=== PATIENT | female | born 1995 | race African-American/Black ===

== ENCOUNTER 2020-05-19 16:27 | Observation (INO) | payer MEDICAID | END 2020-05-19 17:35 | disposition home or self-care (01) | LOC: LDRP 16:27 | PROVIDERS: ADMIT Obstetrics & Gynecology; ATTEND Obstetrics & Gynecology | DX: O99.89 Other specified diseases and conditions complicating pregnancy, childbirth and the puerperium (principal); M54.9 Dorsalgia, unspecified; O26.893 Other specified pregnancy related conditions, third trimester; R10.9 Unspecified abdominal pain; Z3A.35 35 weeks gestation of pregnancy | CPT/HCPCS: 59025; 81002; G0378 ==

== ENCOUNTER 2020-06-09 06:40 | Inpatient (IN) | payer MEDICAID ==
[~2020-06-09] VITALS: Ht 175.3 cm; Wt 104.3 kg
[2020-06-09] MEDS ORDERED: LACT. RINGERS/OXYTOCIN 20UNITS 1,000 ML IV SCH (07:23)
[2020-06-09] MEDS ORDERED: LACTATED RINGER'S 1,000 ML IV SCH (07:23)
[2020-06-09] MEDS ORDERED: METHYLERGONOVINE MALEATE 0.2 MG/ML AMP IM PRN (07:30)
[2020-06-09] MEDS ORDERED: CARBOPROST TROMETHAMINE 250 MCG/1ML VIAL IM PRN (07:30)
[2020-06-09] MEDS ORDERED: DERMOPLAST 60ML BOTTLE TOP PRN (07:30)
[2020-06-09] MEDS ORDERED: PENICILLIN G POT 5MIL/D5 50ML 50 ML IV ONE ×2 (07:30→07:31)
[2020-06-09] MEDS ORDERED: PHISODERM TOP SOLN 240ML BTL TOP PRN (07:30)
[2020-06-09] MEDS ORDERED: LIDOCAINE 2%HCL (LOCAL ANESTH.) INJ 20ML MDV ID ONE (07:30)
[2020-06-09] MEDS ORDERED: WITCH HAZEL-GLYCERIN PAD TOP PRN (07:30)
[2020-06-09] MEDS ORDERED: LACT. RINGERS/OXYTOCIN 20UNITS 1,000 ML IV ONE (07:40)
[2020-06-09] MEDS ORDERED: PREN-96 PO (07:57)
[2020-06-09 09:09] LABS: Urine Bacteria FEW /hpf (None Seen); Urine Blood 2+ /uL (Negative); Urine Hyaline Cast FEW /lpf (0 - 2); Urine Mucus FEW (None Seen); Urine Specific Gravity 1.007 (1.001-1.035); Urine WBC 21 /hpf (0 - 5)
[2020-06-09 09:11] LABS: INR 0.96 (0.9-1.15)
[2020-06-09 09:20] LABS: Albumin 2.7 g/dL (3.4-5.0); Calcium 8.5 mg/dL (8.5-10.1); Potassium 3.6 mmol/L (3.5-5.1)
[2020-06-09 09:25] LABS: BUN/Creatinine Ratio 6.6; Bilirubin, Total 0.4 mg/dL (0.2-1.0); Total Protein 7.8 g/dL (6.4-8.2); Uric Acid 4.4 mg/dL (2.6-6.0)
[2020-06-09 09:27] LABS: Alcohol, Urine < 3.0 mg/dL (0-10); Amphetamine Screen, Urine NEGATIVE (NEGATIVE); Barbiturate Scree,Urine NEGATIVE (NEGATIVE); Benzodiazephine Screen, Urine NEGATIVE (NEGATIVE); Cannabinoid Screen, Urine NEGATIVE (NEGATIVE); Cocaine Screen, Urine NEGATIVE (NEGATIVE); Opiate Scree,Urine NEGATIVE (NEGATIVE); Phencyclidine Screen, Urine NEGATIVE (NEGATIVE)
--- NOTE | 2020-06-09 11:02 | NUR ---
Ambulation: Patient OOB with standby assistance by RN. Patient ambulated to bathroom with steady gait. Patient able to void without difficulty 800ml. [facility] teaching provided with returned demonstration by patient. Clean gown provided and bed linen changed. Patient ambulated back to bed with steady gait and no distress noted.
[2020-06-09] MEDS ORDERED: PENICILLIN G POTASSIUM 2,500,000 UNITS in D5W 5% 50 ML IV SCH (11:30)
[2020-06-09] MEDS: IBUPROFEN 600 MG TAB PO PRN ×2 (11:48→19:30)
[2020-06-09 15:33] LABS: Neutrophils % (auto) 60.5 % (37.0-80.0); White Blood Cell 10.5 10^3/uL (4.4-10.8)
[2020-06-09 15:34] LABS: Basophils # (auto) 0.06 10 ^3/uL (0-0.2); Basophils % (auto) 0.6 % (0.0-2.0); Eosinophils # (auto) 0.3 10 ^3/uL (0-0.8); Eosinophils % (auto) 2.8 % (0.0-7.0); Hemoglobin 10.5 g/dL (12.2-16.2); Lymphocytes # (auto) 2.43 10 ^3/uL (0.4-5.4); Lymphocytes % (auto) 23.1 % (10.0-50.0); Mean Corpuscular Hemoglobin 27.3 pg (28.0-32.0); Mean Corpuscular Hgb Conc. 31.8 g/dL (32.0-36.0); Mean Corpuscular Volume 85.7 fL (80.0-100.0); Monocytes # (auto) 1.33 10 ^3/uL (0-1.3); Monocytes % (auto) 12.6 % (0.0-12.0); Neutrophils # (auto) 6.38 10 ^3/uL (1.6-8.6); Platelet Count (auto) 270 10^3/uL (140-450); Red Blood Cells 3.85 10^6/uL (4.0-5.20)
[2020-06-09 19:00] VITALS: BP_SYST 111; BP_SYST 128; BP_DIAS 66; BP_DIAS 78
--- NOTE | 2020-06-09 19:00 | NUR ---
Teaching: Reviewed information in [facility] [employer] booklet with MOB. Discussed benefits of and risks associated with not . Discussed different positions, proper latch, feeding cues, and baby-led . Provided information of medication side effects related to . MOB requesting bottle. All questions and concerns addressed at this time. Patient verbalized understanding of information. Bottle-feeding Education: Patient encouraged to breastfeed. Benefits of and the risk of providing formula to infant was discussed. Patient verbalized understanding of the benefits and is aware of risk and insists on bottle-feeding. Formula provided and instruction on formula preperation from the [facility] booklet reviewed with patient.
[2020-06-09 23:00] VITALS: BP 123/72
--- NOTE | 2020-06-10 03:00 | NUR ---
Artificial Nipple Education: Encouraged mother to refrain from using artificial nipples which include a pacifier. Discussed the risk of artificial nipple use and its effect on effective . Mother verbalized understanding of information and continues to request pacifier despite education.
[2020-06-10 03:30] VITALS: BP 119/59
[2020-06-10] MEDS: IBUPROFEN 600 MG TAB PO PRN (03:32)
[2020-06-10 07:06] LABS: RPR Non Reactive (Non Reactive)
[2020-06-10 07:30] VITALS: BP 110/172
--- NOTE | 2020-06-10 10:30 | NUR ---
Discharge: Discharge instructions given as ordered. Pt encouraged to follow up with [employer] [facility]ACHINE OPERATOR as instructed. All questions and concerns addressed. Patient verbalized understanding. Medication reconciliation completed and copy given to patient. All required/requested vaccines given and copies of vaccinations given to patient. Patient encouraged to prepare to depart unit.
[2020-06-10 11:00] VITALS: BP 114/70
[2020-06-10 11:45] VITALS: BP 114/70
[2020-06-10 12:10] VITALS: BP 114/70
--- NOTE | 2020-06-10 12:10 | NUR ---
Discharge: Patient ambulate to vehicle with all personal belongings, accompanied by staff and family member. No distress noted at time of departure, no adverse changes in status since initial assessment.
== END 2020-06-10 12:10 | disposition home or self-care (01) | DRG 560 ==
LOC: LDRP 06:40 → OBSVTOIN 07:21
PROVIDERS: ADMIT Specialist; ATTEND Specialist
PROC: 10E0XZZ Delivery of Products of Conception, External Approach (ICD-10-PCS; principal; 2020-06-09)
DX: O99.824 Streptococcus B carrier state complicating childbirth (principal); Z20.828 Contact with and (suspected) exposure to other viral communicable diseases; Z37.0 Single live birth; Z3A.39 39 weeks gestation of pregnancy; Z88.5 Allergy status to narcotic agent
CPT/HCPCS: 36415; 59025; 59409; 80053; 80307; 81001; 84112; 84550; 85025; 85610; 85730; 86592; 86850; 86900; 86901; 87426; 96360; G0378; J2540; J2590; J7060